=== PATIENT | male | born 1950 | race Caucasian/White ===

== ENCOUNTER → 2020-04-01 | Outpatient (CLI) | payer OTHER, MEDICARE | LOC: HYPER 08:11 → RAD 08:11 → HYPER 15:59 | PROVIDERS: ATTEND Specialist | DX: E11.621 Type 2 diabetes mellitus with foot ulcer (principal); L97.522 Non-pressure chronic ulcer of other part of left foot with fat layer exposed; L84 Corns and callosities; E11.40 Type 2 diabetes mellitus with diabetic neuropathy, unspecified; E11.65 Type 2 diabetes mellitus with hyperglycemia; E66.01 Morbid (severe) obesity due to excess calories; E78.5 Hyperlipidemia, unspecified; G47.30 Sleep apnea, unspecified; I10 Essential (primary) hypertension; J45.909 Unspecified asthma, uncomplicated; M19.90 Unspecified osteoarthritis, unspecified site; F32.9 Major depressive disorder, single episode, unspecified; Z85.46 Personal history of malignant neoplasm of prostate; Z79.82 Long term (current) use of aspirin; Z79.84 Long term (current) use of oral hypoglycemic drugs; Z87.891 Personal history of nicotine dependence; Z68.33 Body mass index [BMI] 33.0-33.9, adult ==

== ENCOUNTER → 2020-04-15 | Outpatient (CLI) | payer OTHER, MEDICARE | LOC: HYPER 07:58 | PROVIDERS: ATTEND Specialist | DX: E11.621 Type 2 diabetes mellitus with foot ulcer (principal); L97.522 Non-pressure chronic ulcer of other part of left foot with fat layer exposed; L03.032 Cellulitis of left toe; L84 Corns and callosities; E11.40 Type 2 diabetes mellitus with diabetic neuropathy, unspecified; E11.65 Type 2 diabetes mellitus with hyperglycemia; E66.01 Morbid (severe) obesity due to excess calories; E78.5 Hyperlipidemia, unspecified; G47.30 Sleep apnea, unspecified; I10 Essential (primary) hypertension; J45.909 Unspecified asthma, uncomplicated; M19.90 Unspecified osteoarthritis, unspecified site; F32.9 Major depressive disorder, single episode, unspecified; Z85.46 Personal history of malignant neoplasm of prostate; Z79.82 Long term (current) use of aspirin; Z87.891 Personal history of nicotine dependence; Z68.33 Body mass index [BMI] 33.0-33.9, adult ==

== ENCOUNTER → 2020-04-17 | Outpatient (CLI) | payer OTHER, MEDICARE ==
[~2020-04-17] MED LIST: CIPROFLOXACIN750 MG PO; LISINOPRIL10 MG PO; SEREVENT DISKU50 MCG INH
== END ==
LOC: MRI 12:39
PROVIDERS: ATTEND Specialist
DX: M86.8X7 Other osteomyelitis, ankle and foot (principal); E11.621 Type 2 diabetes mellitus with foot ulcer

== ENCOUNTER → 2020-04-24 | Outpatient (CLI) | payer OTHER, MEDICARE ==
[~2020-04-24] MED LIST changes: +PERCOCET 7.5-31 EAC1 PO
== END ==
LOC: LAB 10:30
PROVIDERS: ATTEND Student in an Organized Health Care Education/Training Program
DX: Z01.812 Encounter for preprocedural laboratory examination (principal); Z20.822 Contact with and (suspected) exposure to COVID-19

== ENCOUNTER 2020-04-25 10:25 | Day surgery (SDC) | payer OTHER, MEDICARE ==
[~2020-04-25] VITALS: Ht 182.9 cm; Wt 111.6 kg
[~2020-04-25 10:25] MED LIST changes: -PERCOCET 7.5-31 EAC1 PO
[2020-04-25 11:15] VITALS: BP 128/83
[2020-04-25] MEDS ORDERED: PERCOCET 7.5-31 EAC1 PO (13:10)
[2020-04-25 14:08] VITALS: BP 128/83
--- NOTE | 2020-04-25 14:56 | EKG ---
[address] [address] ELECTROCARDIOGRAM REPORT Name: MERARY SAHNI Room #: 150-6 [facility]#: [id number] Admission: 04/25/20 Attend Phys: Bismark Olivo MD Discharge: Date of : 48 Report #: [id number] [facility] Test Date: 2020-04-25 Test Time: 11:04:27 Pat Name: MERARY SAHNI Department: Room: [facility] Gender: M Insurance Verifier: JIM Williamson : 1950 Requested By: Bismark Olivo Order Number: [id number] : Margarito Jasso Measurements Intervals Rudd Rate: 60 P: 44 [place]: 199 QRS: 62 QRSD: 105 T: 33 QT: 426 QTc: 426 Interpretive Statements Sinus rhythm Abnormal R-wave progression, early transition No previous ECG available for comparison Electronically Signed On 04-25-2020 14:56:16 HISTORIOGRAPHY PROFESSOR by Margarito Jasso [email or web address] <ELECTRONICALLY SIGNED> By: Margarito Jasso MD, [facility] 04/25/20 1456 1104 1104 Margarito Jasso MD, FACC /EPI
--- NOTE | 2020-04-29 17:06 | PATH ---
[facility] [address] [place] [address] PATHOLOGY RPT PROCEDURE Name: MERARY SAHNI Room #: DEP [facility] M.R.#: [id number] Admission: 04/25/20 Date of : 48 Discharge: 04/25/20 Report #: [id number] Path Case #: [id number] [facility] Accession Number: [id number] . 01 Material submitted: . toe - LEFT SECOND TOE. Modifiers: left, second . 01 Clinical history: . OSTEOMYELITIS OF SECOND TOE,LEFT FOOT . 02 Diagnosis: Toe, left second toe, amputation: - Skin and subcutaneous tissue with ulceration and marked acute inflammation. - Underlying bone showing acute osteomyelitis. - Bone margin as well as skin and soft tissue margins viable. . (IUV:mml; 04/29/2020) QLM 04/29/2020 [facility]3 Local . 02 Electronically signed: . Caity Gonzales MD, Pathologist NPI- [id number] . 01 Gross description: . The specimen is received in formalin, labeled "Merary Sahni, left second toe". Received is an amputated digit measuring 3.3 x 2.8 x 2.3 cm in greatest dimensions. The bone margin is smooth and concave in appearance, consistent with disarticulation. The bone and soft tissue margins are inked black. The nail is present displaying a light flores and thickened appearance. At the distal aspect of the specimen, there is a poorly circumscribed, irregular in contour and light flores to george-flores lesion measuring 1.8 x 1.7 cm, which is 1.8 cm from the closest skin margin. A full-thickness longitudinal cross-section is submitted proximal to distal aspect in cassettes A1 and A2, following decalcification. . Also received within the specimen container is an additional fragment of bone measuring 1.4 x 0.6 x 0.5 cm in greatest dimensions. The specimen is bisected and entirely submitted in cassette A3, following decalcification. (CAA; 04/28/2020) QAC/QAC 04/28/2020 1338 Local . 02 Pathologist provided ICD-10: L97.529, L98.9, M86.172 . 02 CPT . 647377, [id number] [place] [id number] PATHOLOGY RPT PROCEDURE Name: MERARY SAHNI Room #: DEP [facility].#: [id number] Admission: 04/25/20 Date of : 48 Discharge: 04/25/20 Report #: [id number] Path Case #: [id number] Specimen Comment: A courtesy copy of this report has been sent to [phone] Specimen Comment: [phone] Specimen Comment: Report sent to Specimen Comment: Report sent to / DR JARVIS Performed at: [address] [facility], [place] [id number] MD Alan Mendoza MD Phone: [phone] Performed at: [address] [id number] MD Caity Gonzales MD Phone: [phone]
--- NOTE | 2020-05-01 09:59 | O ---
[facility] [place] [address] OPERATIVE REPORT Name: MERARY SAHNI Room #: DEP [facility].#: [id number] Admission: 04/25/20 Attend Phys: iBsmark Olivo MD Discharge: 04/25/20 Date of : 48 Report #: [id number] THIS REPORT FOR: cc: Maurice Espinoza MD, Brian G. MD Kneidel,Bismark Mehta MD ~ DATE OF SERVICE: 04/25/2020 PREOPERATIVE DIAGNOSIS: Left second toe osteomyelitis. POSTOPERATIVE DIAGNOSIS: Left second toe osteomyelitis. PROCEDURE: Left second toe amputation. SURGEON: Dr. Bismark Olivo. SLUBBER HAND: Tali Kirk. ANESTHESIA: General. ESTIMATED BLOOD LOSS: 10 mL. DRAINS: No drains. TOURNIQUET TIME: 15 minutes. DESCRIPTION OF PROCEDURE: The patient brought to the operating room where he was placed under general anesthesia. Once under adequate general anesthesia, his left lower extremity was prepped and draped in sterile manner. The extremity was elevated, exsanguinated, tourniquet placed 300 mmHg. A fishmouth-type incision about the middle phalanx of the second toe was made. This was dissected directly down to the bone. The collateral ligaments at the PIP joint as well as the extensor and flexor tendons were then incised and the toe was completely removed. The head of the proximal phalanx was excised with a rongeur and the wound was irrigated copiously and closed with 3-0 nylon for the skin. The wound was dressed with Xeroform, 4 x 4s, and sterile soft compressive dressing was placed. Tourniquet was let down at 50 minutes. Toes were pink and warm with good capillary refill. There were no complications from the procedure. The patient tolerated the procedure well and went to recovery room without incident. <ELECTRONICALLY SIGNED> By: Bismark Olivo MD 05/01/20 0959 1314 1347 Bismark Olivo MD /nt
== END 2020-04-25 14:30 | disposition home or self-care (01) ==
LOC: OR 10:25 → TBA 10:26 → OR 10:49
PROVIDERS: ATTEND Orthopaedic Surgery Foot and Ankle Surgery
DX: M86.172 Other acute osteomyelitis, left ankle and foot (principal); L97.529 Non-pressure chronic ulcer of other part of left foot with unspecified severity; J45.909 Unspecified asthma, uncomplicated; Z87.891 Personal history of nicotine dependence; I10 Essential (primary) hypertension; G47.30 Sleep apnea, unspecified; Z90.79 Acquired absence of other genital organ(s); Z79.899 Other long term (current) drug therapy
CPT/HCPCS: 50010; 50101; 50386; 56527; 57091; 57179; 62110; 62900; 70005